=== PATIENT | male | born 1950 | race African-American/Black ===

== ENCOUNTER 2016-05-21 11:05 | Emergency (ER) | payer OTHER ==
[2016-05-21 11:10] VITALS: BP 163/90; PULSE 81; TEMP 98.3; BMI 25.7
--- NOTE | 2016-05-21 11:40 | PDOC ---
History of Present Illness - General Chief Complaint: Abscess Boil Stated Complaint: LT SIDE PAIN Time Seen by Provider: 05/21/16 11:26 History Source: Patient Exam Limitations: No Limitations - History of Present Illness Initial Comments: CHIEF COMPLAINT: 65 y/o afebrile male with no significant PMH c/o abscess to left chest for the past few days. HISTORY OF PRESENT ILLNESS: Pt denies f/c, n/v/d, trauma to affected area, redness/warmth to affected area, drainage from abscess, TTP of affected area, streaking. Vital signs on arrival are within normal limits. REVIEW OF SYSTEMS: GENERAL/CONSTITUTIONAL: No fever/chills. No weakness. No weight change. HEAD, EYES, EARS, NOSE AND THROAT: No change in vision. No ear pain or discharge. No sore throat. CARDIOVASCULAR: No chest pain or shortness of breath. RESPIRATORY: No cough, wheezing, or hemoptysis. MUSCULOSKELETAL: No joint or muscle swelling or pain. No neck or back pain. SKIN: +abscess to left chest NEUROLOGIC: No headache, vertigo, loss of consciousness, or loss of sensation. PHYSICAL EXAM: GENERAL: The patient is awake, alert, and fully oriented, in no acute distress. He is very well appearing, in NAD or obvious discomfort. HEAD: Normal with no signs of trauma. ENT: Pupils equal, round and reactive to light, extraocular movements intact, sclera anicteric, conjunctiva clear. Neck supple. EXTREMITIES: Normal range of motion, no edema. NEUROLOGICAL: Normal speech, normal gait. CN II-XII grossly intact. PSYCH: Normal mood, normal affect. SKIN: 0.5cm, non tender, skin colored, raised lesion with central head on left breast, inferior and lateral to left areola. No pain with palpation of abscess. No fluid expressed from abscess with pressure. No surrounding erythema , warmth, streaking. Past History - Past Medical History Allergies/Adverse Reactions: Allergies Allergy/AdvReac Type Severity Reaction Status Date / Time No Known Allergies Allergy Verified 05/21/16 11:06 Home Medications: Ambulatory Orders NK [No Known Home Medication] 05/21/16 Disorders: Yes (BPH) - Surgical History Appendectomy: Yes (COLONOSCOPY 2003) - Psycho/Social/Smoking Cessation Hx Anxiety: No Suicidal Ideation: No Smoking History: Current every day smoker Have you smoked in the past 12 months: Yes Number of Cigarettes Smoked Daily: 8 Information on smoking cessation initiated: Yes 'Breaking Loose' booklet given: 05/21/16 Hx Alcohol Use: No Drug/Substance Use Hx: No Substance Use Type: Alcohol, Marijuana Hx Substance Use Treatment: No *Physical Exam - Vital Signs Last Vital Signs Temp Pulse Resp BP Pulse Ox 98.3 F 81 18 163/90 100 05/21/16 11:07 05/21/16 11:07 05/21/16 11:07 05/21/16 11:07 05/21/16 11:07 Medical Decision Making - Medical Decision Making A/P: 65 y/o afebrile male with cyst to left chest. Suggested he apply hot compresses to the affected area multiple times per day and f/u with his doctor if no improvement within 1 week. Instructed him to return to the ER with any worsening or concerning symptoms, including fever, streaking, redness. The patient verbalizes understanding of all instructions, has no further questions and is awaiting discharge. *DC/Admit/Observation/Transfer Diagnosis at time of Disposition: Cyst (solitary) of breast Qualifiers: Laterality: left Qualified Code(s): N60.02 - Solitary cyst of left breast - Discharge Dispostion Disposition: HOME Condition at time of disposition: Good - Patient Instructions Printed Discharge Instructions: DI for Epidermal Cyst Additional Instructions: Discharge Instructions: -Apply hot compresses multiple times per day -Follow up with your regular doctor in 1 week if no improvement -Return to the ER with any worsening or concerning symptoms
== END 2016-05-21 11:50 | disposition home or self-care (01) ==
LOC: JERFT 11:05
DX: N60.02 Solitary cyst of left breast (principal); F17.210 Nicotine dependence, cigarettes, uncomplicated
CPT/HCPCS: 99281-25

== ENCOUNTER 2020-11-02 04:41 | Day surgery (SDC) | payer OTHER ==
[2020-11-02 11:00] VITALS: TEMP 97.2
[2020-11-02 11:43] VITALS: BP 124/57; PULSE 65
== END 2020-11-02 12:25 | disposition home or self-care (01) ==
LOC: JASU-ENDO 04:41
PROVIDERS: ATTEND Internal Medicine Gastroenterology
PROC: 0DBH8ZX Excision of Cecum, Via Natural or Artificial Opening Endoscopic, Diagnostic (ICD-10-PCS; principal; 2020-11-02 10:00)
DX: Z12.11 Encounter for screening for malignant neoplasm of colon (principal); Z86.010 Personal history of colon polyps; D12.5 Benign neoplasm of sigmoid colon; K64.8 Other hemorrhoids
CPT/HCPCS: 88305-TC

== ENCOUNTER 2021-10-06 09:40 | Emergency (ER) | payer OTHER ==
[2021-10-06 09:52] VITALS: BP 125/80; PULSE 89; TEMP 97.5; BMI 17.4
== END 2021-10-06 10:47 | disposition home or self-care (01) ==
LOC: JERFT 09:40
DX: Z46.6 Encounter for fitting and adjustment of urinary device (principal)
CPT/HCPCS: 99283-25

== ENCOUNTER 2021-12-28 13:53 | Emergency (ER) | payer OTHER ==
[2021-12-28 14:00] VITALS: BP 114/67; PULSE 93; RESP 18; TEMP 98.2; BMI 20.9
== END 2021-12-28 15:15 | disposition home or self-care (01) ==
LOC: JER 13:53
DX: T83.091A Other mechanical complication of indwelling urethral catheter, initial encounter (principal)
CPT/HCPCS: 99283-25